=== PATIENT | female | born 2005 | race Caucasian/White ===

== ENCOUNTER 2025-01-07 09:59 | Emergency (ER) | payer MEDICAID ==
[~2025-01-07] VITALS: Ht 157.5 cm; Wt 70.0 kg
[2025-01-07 10:05] VITALS: O2SAT 100
[2025-01-07 11:30] LABS: BASOPHILS % 0.4 % (0.0-2.0); EOSINOPHILS % 0.8 % (0.0-5.0); HEMATOCRIT. 38.1 % (36.0-48.0); HEMOGLOBIN. 13.2 g/dL (12.0-16.0); LYMPHOCYTES % 35.5 % (20.0-50.0); MEAN PLATELET VOLUME 10.0 fl (7.4-10.4); MONOCYTES % 7.1 % (2.0-8.0); NEUTROPHILS % 56.2 % (40.0-76.0); PLATELET 222 x1000/uL (130-400); RED BLOOD CELL COUNT 4.60 mill/uL (4.2-5.4); RED CELL DISTRIBUTION WIDTH 14.0 % (11.6-14.6)
[2025-01-07 11:59] LABS: B-HCG QUANTITATIVE 39 mIU/mL (<6); CREATININE 0.7 mg/dL (0.6-1.0); UREA NITROGEN BLOOD 11 mg/dL (9-23)
[2025-01-07 12:01] LABS: ASPARTATE AMINOTRANSFERASE 34 IU/L (<34); BILIRUBIN TOTAL 0.5 mg/dL (0.1-1.0); PROTEIN TOTAL 7.6 g/dL (6.0-8.3)
[2025-01-07 12:56] VITALS: BP 114/63; PULSE 68; RESP 17; TEMP 36.8; O2SAT 100
== END 2025-01-07 12:57 | disposition home or self-care (01) ==
LOC: ER 09:59
DX: O46.8X1 Other antepartum hemorrhage, first trimester (principal); N93.9 Abnormal uterine and vaginal bleeding, unspecified; Z3A.01 Less than 8 weeks gestation of pregnancy
CPT/HCPCS: 36415; 76801; 80053; 84702; 85025; 86850; 86900; 99284